=== PATIENT | female | born 1945 | race Caucasian/White ===

== ENCOUNTER 2020-10-22 08:58 | Emergency (ER) | payer MEDICARE, SELFPAY ==
[2020-10-22 09:00] VITALS: PULSE 85; RESP 12; TEMP 36.7; O2SAT 100; BMI 21.9
[2020-10-22 09:11] VITALS: BP 144/69; PULSE 85; RESP 12; TEMP 36.7
--- NOTE | 2020-10-22 09:13 | HMH.EDUTC ---
[facility] [place] Disposition Clinical Impression: Exposure to COVID-19 virus Disposition: Home, Self-Care Condition on Discharge: Good Instructions: Preventing the Spread of Coronavirus Discharge Instructions Additional Instructions: You have been tested for COVID19. Please isolate as if you are positive. Your results will be available on the patient portal when complete. Referrals: Provider,Referral, [Primary Care Provider] - Time of Disposition: : Medical Decision Making - Hira Inquiry Pt receiving controlled substance: No Vital Signs: 10/22/20 09:00 10/22/20 09:11 Temperature 98.1 F 98.1 F Temperature Source Oral Pulse Rate 85 Pulse Rate [Left] 85 Respiratory Rate 12 12 Blood Pressure 144/69 H 02 Sat by Pulse Oximetry 100 [facility] HPI - General Stated complaint: covid test Time Seen by Provider: 10/22/20 09:14 Mode of Arrival: Ambulatory Source of Information: Patient Limitations: No Limitations Description of Symptoms (Recalled from Triage Doc. by RN): covid test. exposed 10/18. asymptomatic. HEENT Symptoms (Recalled from RN notes): No Resp Symptoms (Recalled from RN notes): No Skin Symptoms (Recalled from RN notes): No MS Symptoms (Recalled from RN notes): No Functional Status (Recalled from RN notes): na - History of Present Illness Provider Complaint: Patient presents for COVID19 test. She was exposed 10/18/20. She is asymptomatic. She has been vaccinated against COVID19. Onset (ago): day(s) (5) Relieving factors: none Exacerbating factors: none Associated symptoms: denies other symptoms Treatments prior to arrival: none - Related Data Allergies Allergy/AdvReac Type Severity Reaction Status Date / Time No Known Allergies Allergy Verified 10/22/20 09:11 - Worker's Comp Is this a Worker's Comp case?: No [facility] History - Hepatitis A Screen Drug use history?: No High risk sexual behaviors?: No History of sexually transmitted infection?: No Currently employed?: No Childcare worker?: No Do you have indoor plumbing?: Yes Do you have electricity?: Yes Attestation statement:: This patient has been screened for Hepatitis A risk factors. I have reviewed the patient's past medical history: Yes ROS Obtained: Yes All systems reviewed & no additional complaints Physical Exam - General General appearance: alert, in no apparent distress - Head Head exam: normocephalic - Eye Eye exam: Present: PERRL - ENT ENT exam: Present: normal oropharynx, TM's normal bilaterally - Neck Neck exam: Present: normal inspection - Chest Chest inspection: Present: symmetric chest wall rise - Respiratory Respiratory exam: Present: normal lung sounds bilaterally. Absent: respiratory distress - Cardiovascular Cardiovascular exam: Present: regular rate, normal rhythm - Neurological Exam Neurological exam: Present: alert, oriented X3 - Psychiatric Psychiatric exam: Present: normal affect, normal mood - Skin Skin exam: Present: warm, dry, intact
== END 2020-10-22 09:31 | disposition home or self-care (01) ==
PROVIDERS: Emergency Provider Physician Assistant
DX: Z20.822 Contact with and (suspected) exposure to COVID-19 (principal)
CPT/HCPCS: G0463; 99202; C9803; U0003; U0005

== ENCOUNTER 2020-11-04 10:00 | Emergency (ER) | payer MEDICARE, SELFPAY ==
[2020-11-04 10:40] VITALS: BP 157/76; PULSE 77; RESP 20; TEMP 36.7; O2SAT 99; BMI 22.2
--- NOTE | 2020-11-04 11:08 | HMH.EDUTC ---
[facility] [place] Disposition Clinical Impression: Exposure to COVID-19 virus Disposition: Home, Self-Care Condition on Discharge: Good Instructions: Preventing the Spread of Coronavirus Discharge Instructions Referrals: Provider,Referral, [Primary Care Provider] - Time of Disposition: 11:13 Medical Decision Making - Hira Inquiry Pt receiving controlled substance: No Vital Signs: 11/04/20 10:40 Temperature 98.0 F Temperature Source Oral Pulse Rate [Right Brachial] 77 Respiratory Rate 20 Blood Pressure [Right Arm] 157/76 H Blood Pressure Mean [Right Arm] 103 Blood Pressure Source [Right Arm] Automatic Cuff Blood Pressure Position [Right Arm] Sitting 02 Sat by Pulse Oximetry 99 Oxygen Delivery Method Room Air Orders (Tests/Meds): ORDERS Category Date Time Status Covid-19 Nasal PCR ([facility]) Routine Lab 11/04/20 10:48 Received [facility] [place] HPI - General Stated complaint: covid test Time Seen by Provider: 11/04/20 11:08 Mode of Arrival: Ambulatory Source of Information: Patient Limitations: No Limitations Description of Symptoms (Recalled from Triage Doc. by RN): COVID TEST D/T EXPOSURE APPROX 1.5 WEEKS AGO. C/O RUNNY NOSE HEENT Symptoms (Recalled from RN notes): Yes Resp Symptoms (Recalled from RN notes): No Skin Symptoms (Recalled from RN notes): No MS Symptoms (Recalled from RN notes): No Functional Status (Recalled from RN notes): WNL - History of Present Illness Provider Complaint: Patient was exposed to COVID19 nearly two weeks ago when she came from [place] to visit her sister. She is due to fly back on Friday and needs a COVID19 test before she flies. She does have a runny nose, but it started yesterday after she cleaned out a josé closet. Onset (ago): day(s) (10) Relieving factors: none Exacerbating factors: none Associated symptoms: denies other symptoms Treatments prior to arrival: none - Related Data Allergies Allergy/AdvReac Type Severity Reaction Status Date / Time No Known Allergies Allergy Verified 10/22/20 09:11 - Worker's Comp Is this a Worker's Comp case?: No [facility] History - Hepatitis A Screen Drug use history?: No High risk sexual behaviors?: No History of sexually transmitted infection?: No Currently employed?: No Childcare worker?: No Do you have indoor plumbing?: Yes Do you have electricity?: Yes Attestation statement:: This patient has been screened for Hepatitis A risk factors. I have reviewed the patient's past medical history: Yes ROS Obtained: Yes All systems reviewed & no additional complaints - ENT Ears, Nose, Mouth, and Throat: Reports nasal discharge Physical Exam - General General appearance: alert, in no apparent distress - Head Head exam: normocephalic - Eye Eye exam: Present: PERRL - ENT ENT exam: Present: normal oropharynx, TM's normal bilaterally - Neck Neck exam: Present: normal inspection. Absent: lymphadenopathy - Chest Chest inspection: Present: normal inspection, symmetric chest wall rise - Respiratory Respiratory exam: Present: normal lung sounds bilaterally - Cardiovascular Cardiovascular exam: Present: regular rate, normal rhythm - Neurological Exam Neurological exam: Present: alert, oriented X3 - Psychiatric Psychiatric exam: Present: normal affect, normal mood - Skin Skin exam: Present: warm, dry, intact
[2020-11-04 11:17] VITALS: BP 157/76; PULSE 77; RESP 20; TEMP 36.7; O2SAT 99
== END 2020-11-04 11:20 | disposition home or self-care (01) ==
PROVIDERS: Emergency Provider Physician Assistant
DX: U07.1 COVID-19 (principal)
CPT/HCPCS: G0463; 99202; C9803; U0003; U0005